=== PATIENT | male | born 1995 | race Hispanic/Latino ===

== ENCOUNTER 2024-10-13 16:21 | Emergency (ER) | payer OTHER ==
[2024-10-13 17:59] LABS: #Basophils 0.04 10x3/uL (0.0-0.2); #Eosinophils 0.09 10x3/uL (0.0-0.7); #Monocytes 0.45 10x3/uL (0.11-0.59); #Neutrophils 4.74 10x3/uL (1.40-6.50); %Basophils 0.6 % (0.0-1.0); %Eosinophils 1.2 % (0.0-10.0); %Lymphocytes 25.8 % (21.0-51.0); %Monocytes 6.2 % (0.0-10.0); %Neutrophils 65.6 % (42.0-75.0); Hematocrit 47.1 % (42.0-52.0); Hemoglobin 16.8 g/dL (14.0-18.0); Mean Corpuscular HGB CONC 35.7 g/dL (32.0-36.0); Mean Corpuscular Hemoglobin 31.5 pg (27.0-31.0); Mean Corpuscular Volume 88.2 fL (78.0-98.0); Mean Platelet Volume 10.2 fL (7.4-10.4); Platelet Count 202 10x3/uL (130-400); Red Blood Cell (RBC) Count 5.34 mill/uL (4.70-6.10); White Blood Cell (WBC) Count 7.22 10x3/uL (4.8-10.8)
[2024-10-13 18:13] LABS: INR-International Normal Ratio 1.1; PTT 26.7 sec (22.9-36.1); Prothrombin Time 14.5 sec (12.0-14.7)
[2024-10-13 18:24] LABS: ALT (SGPT) 222 U/L (Less than 45); AST (SGOT) 98 U/L (11-34); Albumin 4.5 g/dL (3.1-4.5); Alkaline Phosphatase 104 U/L (40-110); Anion Gap 16 mmol/L (10-20); BUN (Urea Nitrogen) 6 mg/dL (8.9-20.6); Bilirubin, Total 0.9 mg/dL (0.3-1.2); CK (CPK) 280 U/L (30-200); Calc. Creatinine Clearance 0 mL/min (70-130); Calcium 9.3 mg/dL (7.8-10.44); Carbon Dioxide 22 mmol/L (22-29); Chloride 108 mmol/L (98-107); Estimated GFR 126; Globulin 3.1 g/dL (2.4-3.5); Glucose 90 mg/dL (70-105); Magnesium 1.4 mg/dL (1.6-2.6); Potassium 3.7 mmol/L (3.5-5.1); Protein, Total 7.6 g/dL (6.0-8.3); Sodium 142 mmol/L (136-145)
[2024-10-13 18:25] LABS: Troponin I 0.011 ng/mL (< 0.028)
[2024-10-13 19:14] LABS: Bacteria/HPF None Seen HPF (None Seen); Bilirubin Negative (Negative); Blood, Urine Negative (Negative); CAUTI Indications for Culture Pelvic or flank pain; Clarity Clear (Clear); Glucose, Urine (Dipstick) Normal (Negative); Ketone, Urine Negative (Negative); Leukocyte Negative Leu/uL (Negative); Nitrite Negative (Negative); Protein, Urine (Dipstick) 30 mg/dL (Neg-Trace); RBC/HPF 0-3 HPF (0-3); Specific Gravity, Urine 1.026 (1.002-1.036); Squamous Epithelial None Seen HPF (0-3); Urobilinogen Normal mg/dL (Less than 2); WBC/HPF 0-3 HPF (0-3)
[2024-10-13 19:19] LABS: Urine Culture Reflex No No
== END 2024-10-13 19:38 | disposition home or self-care (01) ==
LOC: ERS 16:21
DX: T67.2XXA Heat cramp, initial encounter (principal); M79.10 Myalgia, unspecified site; R74.8 Abnormal levels of other serum enzymes
CPT/HCPCS: 71045; 80053; 81001; 82550; 83735; 84484; 85025; 85610; 85730; 93005